=== PATIENT | male | born 1940 | race Caucasian/White ===

== ENCOUNTER 2016-09-03 07:42 | Emergency (ER) | payer MEDICARE, BC ==
[~2016-09-03] VITALS: Ht 188 cm; Wt 100.3 kg
[~2016-09-03 07:42] MED LIST: COUM5TAB PO; COZA50TA PO; FEXO180 PO; HYDR-3111 PO; OMPR20CCR PO; TAMS5CAP PO; TOPR25TA2 PO
[2016-09-03 07:48] VITALS: BP 139/77; PULSE 94; RESP 18; TEMP 97.7; O2SAT 98
--- NOTE | 2016-09-03 08:03 | PD ---
HPI Chief Complaint: Complaint Time Seen by Provider: 07:54 Travel History International Travel<30 days: No Contact w/Intl Traveler<30days: No Traveled to known affect area: No History of Present Illness HPI This patient is worried about having a bladder infection. He has some dysuria and noticed his urine looked cloudy. No fever or flank pain. Symptoms severity is mild.. PFSH Past Medical History Hx Anticoagulant Therapy: Yes (warfarin) Arthritis: Yes (OSTEOARTHRITIS ) Atrial Fibrillation: Yes Cancer: No Cardiovascular Problems: Yes (afib) High Cholesterol: No Diabetes: Yes (DIET CONTROLLED) Diminished Hearing: No Gastrointestinal Disorders: No GERD: Yes Genitourinary: Yes Hypertension: Yes Immune Disorder: No Implanted Vascular Access Dvce: No Musculoskeletal: Yes Immunizations Current: Yes Past Surgical History Oral Surgery: Yes (TONSILLECTOMY) Tonsillectomy: Yes Other Surgery: Yes Social History Alcohol Use: No Tobacco Use: No Substance Use: No Allergies-Medications (Allergen,Severity, Reaction): Coded Allergies: No Known Allergies (Verified , 09/03/16) Reported Meds & Prescriptions Reported Meds & Active Scripts Active Cipro (Ciprofloxacin HCl) 500 Mg Tab 500 Mg PO BID Reported Prilosec (Omeprazole) 20 Mg Cap 20 Mg PO EVERY OTHER DAY Flomax (Tamsulosin HCl) 0.4 Mg Cap 0.4 Mg PO HS Toprol XL (Metoprolol Succinate) 25 Mg Tab 25 Mg PO DAILY Cozaar (Losartan Potassium) 50 Mg Tab 50 Mg PO DAILY Coumadin (Warfarin) 5 Mg Tab 5 Mg PO MOTUWETHSASU Coumadin (Warfarin) 2.5 Mg Tab 2.5 Mg PO FRI Review of Systems General / Constitutional: No: Fever HENT: No: Headaches Cardiovascular: No: Chest Pain or Discomfort Physical Exam Narrative GASTROINTESTINAL: Abdomen soft, non-tender, nondistended. Positive bowel sounds. No hepato-splenomegaly, or palpable masses. No guarding. SKIN: Inspection shows no rash or ulcers. Palpation shows no induration or nodules. Psych: Normal mood and affect. Normal insight and judgment. Data Data Last Documented VS Vital Signs Date Time Temp Pulse Resp B/P Pulse Ox O2 Delivery O2 Flow Rate FiO2 09/03/16 07:48 97.7 94 18 139/77 98 Room Air Orders Urinalysis - C+S If Indicated (09/03/16 08:01) Urine Culture (09/03/16 08:02) Labs Laboratory Tests Test 09/03/16 08:02 Urine Collection Type CLEAN CATCH Urine Color STRAW Urine Turbidity CLOUDY Urine pH 6.5 Urine Specific Perry 1.009 Urine Protein TRACE mg/dL Urine Glucose (UA) NEG mg/dL Urine Ketones NEG mg/dL Urine Occult Blood MOD Urine Nitrite NEG Urine Bilirubin NEG Urine Leukocyte Esterase LARGE Urine RBC 0-3 /hpf Urine WBC 50-99 /hpf Urine WBC Clumps MOD Microscopic Urinalysis Comment CULTURE INDICATED MDM Medical Decision Making Medical Screen Exam Complete: Yes Emergency Medical Condition: Yes Medical Record Reviewed: Yes Differential Diagnosis Cystitis, UTI, pyelonephritis Narrative Course I have reviewed the patient's electronic medical record. Urinalysis is consistent with infection with bacteriuria and pyuria 5 days of Cipro prescribed Diagnosis Primary Impression: Cystitis Additional Instructions: The patient was advised to follow up with their physician and return if they worsen. Med/Other Pt SpecificInfo: Prescription(s) given Scripts Ciprofloxacin (Cipro)500 Mg Phg791 Mg PO BID #10 TAB Ref 0 Prov:Jose Levi MD 09/03/16 Disposition: DISCHARGE HOME Condition: Stable Jose Levi MD Sep 03, 2016 08:03
[2016-09-03] MEDS ORDERED: TOPR25TA PO (08:04)
[2016-09-03] MEDS ORDERED: PRIL20CA9 PO (08:04)
[2016-09-03] MEDS ORDERED: COUM2.5T PO (08:04)
[2016-09-03] MEDS ORDERED: COUM5TAB PO (08:04)
[2016-09-03] MEDS ORDERED: COZA50TA PO (08:04)
[2016-09-03] MEDS ORDERED: TAMS5CAP PO (08:04)
[2016-09-03 08:19] LABS: BLOOD, URINE MOD (NEG); GLUCOSE,URINE NEG (NEG); KETONE, URINE NEG (NEG); METHOD OF COLLECTION CLEAN CATCH; NITRITE,URINE NEG (NEG); PH, URINE 6.5 (5.0-8.5); URINE COLOR STRAW (YELLW/STRAW)
[2016-09-03 08:25] LABS: COMMENT (UR) CULTURE INDICATED; CULTURE IF INDICATED CULTURE INDICATED; RBC, URINE 0-3 /hpf (0-3)
[2016-09-03] MEDS ORDERED: CIPR-9 PO (08:32)
== END 2016-09-03 08:50 | disposition home or self-care (01) ==
LOC: PHED 07:42
DX: N30.90 Cystitis, unspecified without hematuria (principal)
CPT/HCPCS: 81001; 87086; 99283

== ENCOUNTER 2017-11-15 08:47 | Observation (INO) | payer MEDICARE, BC ==
[2017-11-15] VITALS (8 sets, daily range): BP systolic 124–143; BP diastolic 60–99; PULSE 55–100; RESP 16–20; TEMP 97.5–98.2; O2SAT 18–100
[~2017-11-15] VITALS: Ht 182.9 cm; Wt 100.0 kg
[~2017-11-15 08:47] MED LIST changes: +CIPR-9 PO; +COUM2.5T PO; -FEXO180 PO; -HYDR-3111 PO; -OMPR20CCR PO; +PRIL20CA9 PO; +TOPR25TA PO; -TOPR25TA2 PO
[2017-11-15] MEDS ORDERED: OMEP20TA93 PO (09:06)
[2017-11-15] MEDS ORDERED: SODIUM CHLORIDE 0.9% FLUSH 10 ML FLUSH IVF PRN (09:15)
--- NOTE | 2017-11-15 09:24 | PD ---
HPI Chief Complaint: Cardiac Complaint Time Seen by Provider: 08:55 Travel History International Travel<30 days: No Contact w/Intl Traveler<30days: No Traveled to known affect area: No History of Present Illness HPI This patient woke up at 430 this morning and felt lightheaded and dizzy. He felt like he was going to pass out. He did not lose consciousness. He did not have any chest pain or pressure or tightness or heaviness. Not short of breath or having any headache. Does have history of A. fib on Coumadin. He called paramedics for evaluation. Symptom severity is moderate. Duration 5 hours. No alleviating factors. No exacerbating factors. PFSH Past Medical History Hx Anticoagulant Therapy: Yes Arthritis: Yes (OSTEOARTHRITIS ) Atrial Fibrillation: Yes Heart Rhythm Problems: Yes (AFIB) Cancer: No Cardiovascular Problems: Yes High Cholesterol: No Diabetes: Yes (DIET CONTROLLED) Patient Takes Glucophage: No Diminished Hearing: No Gastrointestinal Disorders: No GERD: Yes Genitourinary: Yes Hypertension: Yes Immune Disorder: No Implanted Vascular Access Dvce: No Musculoskeletal: Yes Immunizations Current: Yes Influenza Vaccination: Yes Past Surgical History Oral Surgery: Yes (TONSILLECTOMY) Tonsillectomy: Yes Other Surgery: Yes Social History Alcohol Use: No Tobacco Use: No Substance Use: No Allergies-Medications (Allergen,Severity, Reaction): Coded Allergies: No Known Allergies (Verified Adverse Reaction, Unknown, 11/15/17) Reported Meds & Prescriptions Reported Meds & Active Scripts Active Reported Omeprazole 20 Mg Tab 20 Mg PO DAILY Flomax (Tamsulosin HCl) 0.4 Mg Cap 0.4 Mg PO HS Toprol XL (Metoprolol Succinate) 25 Mg Tab 25 Mg PO DAILY Cozaar (Losartan Potassium) 50 Mg Tab 50 Mg PO DAILY Coumadin (Warfarin) 5 Mg Tab 5 Mg PO MOTUWETHSASU Coumadin (Warfarin) 2.5 Mg Tab 2.5 Mg PO FRI Review of Systems General / Constitutional: No: Fever Eyes: No: Visual changes HENT: Positive: Lightheadedness, No: Headaches Cardiovascular: No: Chest Pain or Discomfort Respiratory: No: Shortness of Breath Gastrointestinal: No: Abdominal Pain Genitourinary: No: Dysuria Musculoskeletal: Positive: Weakness, No: Pain Skin: No Rash Neurologic: Positive: Weakness, Dizziness Psychiatric: No: Depression Endocrine: No: Polydipsia Hematologic/Lymphatic: No: Easy Bruising Physical Exam Narrative GENERAL: Well-nourished, well-developed patient in no apparent distress. SKIN: Focused skin assessment reveals no rash and nodules. Skin is Warm and dry. HEAD: Atraumatic. Normocephalic. EYES: Pupils equal and round. No scleral icterus. No injection or drainage. ENT: No nasal bleeding or discharge. Mucous membranes pink and moist. NECK: Trachea midline. No JVD. CARDIOVASCULAR: Regular rate and rhythm. No murmur appreciated. RESPIRATORY: No accessory muscle use. Clear to auscultation. Breath sounds equal bilaterally. GASTROINTESTINAL: Abdomen soft, non-tender, nondistended. Hepatic and splenic margins not palpable. MUSCULOSKELETAL: No obvious deformities. No clubbing. No cyanosis. Trace symmetric ankle edema NEUROLOGICAL: Awake and alert. No obvious cranial nerve deficits. Motor grossly within normal limits. Normal speech. PSYCHIATRIC: Appropriate mood and affect; insight and judgment normal. Data Data Last Documented VS Vital Signs Date Time Temp Pulse Resp B/P (MAP) Pulse Ox O2 Delivery O2 Flow Rate FiO2 11/15/17 15:29 83 16 143/72 (95) 98 Room Air 11/15/17 09:01 97.5 Orders Orders Electrocardiogram (11/15/17 09:10) Basic Metabolic Panel (Bmp) (11/15/17 09:10) Ckmb (Isoenzyme) Profile (11/15/17 09:10) Complete Blood Count With Diff (11/15/17 09:10) Prothrombin Time / Inr (Pt) (11/15/17 09:10) Troponin I (11/15/17 09:10) Ecg Monitoring (11/15/17 09:10) Iv Access Insert/Monitor (11/15/17 09:10) Oximetry (11/15/17 09:10) Sodium Chloride 0.9% Flush (Ns Flush) (11/15/17 09:15) Orthostatic Vital Signs (11/15/17 09:10) CKMB (11/15/17 09:21) CKMB% (11/15/17 09:21) Ct Brain W/O Iv Contrast(Rout) (11/15/17 ) Diet Heart Healthy (11/15/17 Dinner) Labs Laboratory Tests Test 11/15/17 09:21 White Blood Count 8.4 TH/MM3 Red Blood Count 4.29 MIL/MM3 Hemoglobin 15.0 GM/DL Hematocrit 43.2 % Mean Corpuscular Volume 100.7 FL Mean Corpuscular Hemoglobin 34.9 PG Mean Corpuscular Hemoglobin Concent 34.6 % Red Cell Distribution Width 13.2 % Platelet Count 151 TH/MM3 Mean Platelet Volume 8.9 FL Neutrophils (%) (Auto) 76.2 % Lymphocytes (%) (Auto) 17.0 % Monocytes (%) (Auto) 3.4 % Eosinophils (%) (Auto) 3.1 % Basophils (%) (Auto) 0.3 % Neutrophils # (Auto) 6.4 TH/MM3 Lymphocytes # (Auto) 1.4 TH/MM3 Monocytes # (Auto) 0.3 TH/MM3 Eosinophils # (Auto) 0.3 TH/MM3 Basophils # (Auto) 0.0 TH/MM3 CBC Comment DIFF FINAL Differential Comment Prothrombin Time 28.8 SEC Prothromb Time International Ratio 2.9 RATIO Blood Urea Nitrogen 11 MG/DL Creatinine 0.88 MG/DL Random Glucose 155 MG/DL Calcium Level 8.2 MG/DL Sodium Level 133 MEQ/L Potassium Level 4.2 MEQ/L Chloride Level 98 MEQ/L Carbon Dioxide Level 27.1 MEQ/L Anion Gap 8 MEQ/L Estimat Glomerular Filtration Rate 84 ML/MIN Total Creatine Kinase 119 U/L Creatine Kinase MB 2.6 NG/ML Troponin I LESS THAN 0.02 NG/ML MDM Medical Decision Making Medical Screen Exam Complete: Yes Emergency Medical Condition: Yes Medical Record Reviewed: Yes Differential Diagnosis Vasovagal episode, cardiac arrhythmia, orthostatic hypotension Narrative Course I have reviewed the patient's electronic medical record. I reviewed his EKG which shows sinus rhythm but no acute ST elevation Extended cardiac monitoring reveals sinus rhythm without ectopy His vital signs are normal Neurologic exam looks normal He has some vague lightheadedness and dizziness and general malaise with some weakness in a general fashion but nothing focal I do not see any evidence for CVA or ACS He has had no chest pain Lab studies have been sent We will check orthostatics Orthostatics are normal The patient rang his call pablo and decided to add further history to the story. Hours after he has been in the room he now tells me that during a 10 minute spell prior to arrival he was slurring and garbling his words. He knew what he wanted to say but could not get the right words out. Did not have muscle weakness nor sensory loss. Speech is now normal. Based on this new information I have added a brain CT. He does have an INR of 2.[address] shows no hemorrhage His new information is concerning for TIA. Given his history of A. fib and age I am going to do 23 hour observation on telemetry I reviewed with the residents will do this I reviewed all his lab studies Diagnosis Primary Impression: TIA (transient ischemic attack) Qualified Codes: G45.9 - Transient cerebral ischemic attack, unspecified Additional Impressions: Atrial fibrillation Qualified Codes: I48.2 - Chronic atrial fibrillation Lightheadedness Admitting Information Admitting Physician Requests: Observation Jose Levi MD Nov 15, 2017 09:24
[2017-11-15 09:31] LABS: AUTOMATED NEUTROPHIL # 6.4 TH/MM3 (1.8-7.7); BASOPHIL % 0.3 % (0.0-2.0); EOSINOPHIL # 0.3 TH/MM3 (0-0.4); EOSINOPHIL % 3.1 % (0.0-4.0); HEMATOCRIT 43.2 % (39.0-51.0); LYMPHOCYTE # 1.4 TH/MM3 (1.0-4.8); MEAN CELL VOLUME 100.7 FL (80.0-100.0); MEAN CORPUSCULAR HEMOGLOBIN 34.9 PG (27.0-34.0); MEAN CORPUSCULAR HGB CONC 34.6 % (32.0-36.0); MEAN PLATELET VOLUME 8.9 FL (7.0-11.0); MONO % 3.4 % (0.0-8.0); MONOCYTE # 0.3 TH/MM3 (0-0.9); NEUT % 76.2 % (16.0-70.0); PLATELET COUNT 151 TH/MM3 (150-450); RED BLOOD COUNT 4.29 MIL/MM3 (4.50-5.90); RED CELL DISTRIBUTION WIDTH 13.2 % (11.6-17.2); WHITE BLOOD COUNT 8.4 TH/MM3 (4.0-11.0)
[2017-11-15 09:41] LABS: INTERNATIONAL NORMALIZED RATIO 2.9 RATIO; PROTHROMBIN TIME - PATIENT 28.8 SEC (9.8-11.6)
[2017-11-15 09:59] LABS: TROPONIN I LESS THAN 0.02 NG/ML (0.02-0.05)
[2017-11-15 10:07] LABS: BICARBONATE 27.1 MEQ/L (21.0-32.0); BLOOD UREA NITROGEN 11 MG/DL (7-18); CALCIUM 8.2 MG/DL (8.5-10.1); CHLORIDE 98 MEQ/L (98-107); CREATININE 0.88 MG/DL (0.60-1.30); GLOMERULAR FILTRATION RATE 84 ML/MIN (>89); GLUCOSE,RANDOM 155 MG/DL (74-106); SODIUM (NA) 133 MEQ/L (136-145)
--- NOTE | 2017-11-15 14:31 | RADRPT ---
EXAM DATE/TIME: 11/15/2017 14:20 [facility] COMPARISON: No previous studies available for comparison. INDICATIONS : Generalized weakness, dizziness. RADIATION DOSE: 44.85 CTDIvol (mGy) MEDICAL HISTORY : Cardiovascular disease. Hypertension. Osteoarthritis.AFIB, diabetes SURGICAL HISTORY : None. ENCOUNTER: Initial ACUITY: 1 day PAIN SCALE: 2/10 LOCATION: cranial TECHNIQUE: Multiple contiguous axial images were obtained of the head. Using automated exposure control and adj ustment of the mA and/or kV according to patient size, radiation dose was kept as low as reasonably a chievable to obtain optimal diagnostic quality images. DICOM format image data is available electro nically for review and comparison. FINDINGS: CEREBRUM: The ventricles are normal for age. No evidence of midline shift, mass lesion, hemorrhage or acute in farction. No extra-axial fluid collections are seen. POSTERIOR FOSSA: The cerebellum and brainstem are intact. The 4th ventricle is midline. The cerebellopontine angle i s unremarkable. EXTRACRANIAL: The visualized portion of the orbits is intact. SKULL: The calvaria is intact. No evidence of skull fracture. CONCLUSION: 1. No acute intracranial abnormality is identified. Gato Orr MD on November 15, 2017 at 14:27 Board Certified Radiologist. This report was verified electronically.
[2017-11-15] MEDS ORDERED: SODIUM CHLORIDE 0.9% FLUSH 10 ML FLUSH IV FLUSH PRN ×2 (17:30→18:15)
--- NOTE | 2017-11-15 17:36 | HHI.HP ---
HPI Service Family Medicine Primary Care Physician Unknown Admission Diagnosis TIA, afib, lightheaded Diagnoses: International Travel<30 Days: No Contact w/Intl Traveler<30days: No Known Affected Area: No History of Present Illness 77 yo M with PMH of Afib, DM, HTN, GERD, BPH presenting for TIA. Patient was in his normal state of health prior to to this morning. This patient woke up at 430 and felt fine, but after eating breakfast and felt lightheaded, dizzy like he may pass out. Took his BP at that time which was 101/60. He did not lose consciousness. He did not have any chest pain or pressure or tightness or heaviness. Not short of breath or having any headache. Does have history of A. fib on Coumadin. He called paramedics for evaluation, and was unable to recall his address, he also states he was unable to express the words he was trying to say. Did not have muscle weakness nor sensory loss. Speech is now normal. In 2011 he had similar symptoms and was unable to swallow at that time he says. At that point he was diagnosed with Afib and started on Coumadin. Review of Systems Constitutional: DENIES: Fever, Weight gain, Weight loss, Chills Eyes: DENIES: Blurred vision, Vision loss Respiratory: DENIES: Cough, Wheezing, Shortness of breath Cardiovascular: DENIES: Chest pain, Palpitations Gastrointestinal: DENIES: Abdominal pain, Bloody stools, Constipation, Diarrhea , Nausea, Vomiting Genitourinary: DENIES: Hematuria, Dysuria Musculoskeletal: COMPLAINS OF: Joint pain (chronic knee pain) Integumentary: DENIES: Rash Hematologic/lymphatic: DENIES: Lymphadenopathy Neurologic: DENIES: Headache, Localized weakness, Seizures Psychiatric: DENIES: Confusion Past Family Social History Past Medical History Afib DM (diet controlled) GERD HTN Osteoarthritis of both knees BPH Past Surgical History Tonsillectomy Allergies: Coded Allergies: No Known Allergies (Verified Allergy, Unknown, 11/15/17) Family History Mother at 53 of breast cancer Brother at 64 of esophageal cancer Brother immunodeficiency? 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 Sitting up on edge of bed comfortably. SKIN: No rashes, ecchymoses or lesions. Cool and dry. HEAD: Atraumatic. Normocephalic. No temporal or scalp tenderness. EYES: Pupils equal round and reactive. Extraocular motions intact. No scleral icterus. No injection or drainage. ENT: Nose without bleeding, purulent drainage or septal hematoma. Throat without erythema, tonsillar hypertrophy or exudate. Uvula midline. Airway patent. NECK: Trachea midline. No JVD or lymphadenopathy. Supple, nontender, no meningeal signs. CARDIOVASCULAR: Regular rate and rhythm without murmurs, gallops, or rubs. RESPIRATORY: Clear to auscultation. Breath sounds equal bilaterally. No wheezes , rales, or rhonchi. GASTROINTESTINAL: Abdomen soft, non-tender, nondistended. No hepato-splenomegaly , or palpable masses. No guarding. MUSCULOSKELETAL: Extremities without clubbing, cyanosis, or edema. No joint tenderness, effusion, or edema noted. No calf tenderness. Negative Homans sign bilaterally. NEUROLOGICAL: Awake and alert. No focal weaknesses or asymmetry appreciated. Cranial nerves II through XII intact. No pronator drift. Finger to nose intact. Heal to kennedy intact. Motor and sensory intact and equal bilaterally. Five out of 5 muscle strength in all muscle groups. Normal speech. Laboratory Laboratory Tests Test 11/15/17 09:21 White Blood Count 8.4 Red Blood Count 4.29 Hemoglobin 15.0 Hematocrit 43.2 Mean Corpuscular Volume 100.7 Mean Corpuscular Hemoglobin 34.9 Mean Corpuscular Hemoglobin Concent 34.6 Red Cell Distribution Width 13.2 Platelet Count 151 Mean Platelet Volume 8.9 Neutrophils (%) (Auto) 76.2 Lymphocytes (%) (Auto) 17.0 Monocytes (%) (Auto) 3.4 Eosinophils (%) (Auto) 3.1 Basophils (%) (Auto) 0.3 Neutrophils # (Auto) 6.4 Lymphocytes # (Auto) 1.4 Monocytes # (Auto) 0.3 Eosinophils # (Auto) 0.3 Basophils # (Auto) 0.0 CBC Comment DIFF FINAL Differential Comment Prothrombin Time 28.8 Prothromb Time International Ratio 2.9 Blood Urea Nitrogen 11 Creatinine 0.88 Random Glucose 155 Calcium Level 8.2 Sodium Level 133 Potassium Level 4.2 Chloride Level 98 Carbon Dioxide Level 27.1 Anion Gap 8 Estimat Glomerular Filtration Rate 84 Total Creatine Kinase 119 Creatine Kinase MB 2.6 Troponin I LESS THAN 0.02 Result Diagram: 11/15/17 0921 11/15/17 0921 Imaging Last [address] 11/15/17 0000 Signed Impressions: Service Date/Time: Wednesday, November 15, 2017 14:20 - CONCLUSION: 1. No acute intracranial abnormality is identified. MD Jose Estevesi VTE Risk Assessment Capyvonne VTE Risk Assessment: Mod/High Risk (score >= 2) Assessment and Plan Assessment and Plan 77 yo M with PMH of Afib, HTN, DM, GERD, BPH admitted for TIA. ACS workup on admission negative. CT head negative on admission. Admitting for 24 hour observation and TIA workup. Code Status DNR Discussed Condition With Dr. Lauryn Gaytan Problem List: (1) TIA (transient ischemic attack) ICD Codes: G45.9 - Transient cerebral ischemic attack, unspecified Status: Acute Plan: Patient describes lightheadedness, dizziness on the morning of admission followed by a 10 minute spell of dysphagia where he cannot do his words out. Currently asymptomatic with no residual focal deficits ACS workup negative on admission EKG on admission showing sinus rhythm with no acute ST elevations Trending troponins MRI/MRA brain pending Echo pending Carotid ultrasound pending Telemetry Neurochecks Out of bed with assistance ASA 325 mg by mouth Lipid profile pending (2) Atrial fibrillation ICD Codes: I48.91 - Unspecified atrial fibrillation Status: Acute Plan: Patient with a history of A. fib Takes warfarin 5 mg daily except for Fridays when he takes 2.5 mg Currently in sinus rhythm INR 2.9 on admission Placing on telemetry Continuing home medications See TIA workup above (3) HTN (hypertension) ICD Codes: I10 - Essential (primary) hypertension Plan: Known history of hypertension Continue home metoprolol 25 mg daily, Cozaar 50 mg daily (4) Diabetes ICD Codes: E11.9 - Type 2 diabetes mellitus without complications Plan: Patient has managed his diabetes with diet Random glucose 155 on admission Hemoglobin A1c pending Low-dose sliding scale ordered (5) BPH (benign prostatic hyperplasia) ICD Codes: N40.0 - Benign prostatic hyperplasia without lower urinary tract symptoms Plan: Known history of BPH No complaints of urinary symptoms at this time Continue home Flomax (6) GERD (gastroesophageal reflux disease) ICD Codes: K21.9 - Gastro-esophageal reflux disease without esophagitis Plan: Known history of GERD Continue home omeprazole (7) FEN Plan: No IV fluids at this time Heart healthy diet Replete electrolytes as needed Currently anticoagulated with warfarin Problem Qualifiers (1) TIA (transient ischemic attack): Qualified Codes: G45.9 - Transient cerebral ischemic attack, unspecified (2) Atrial fibrillation: Qualified Codes: I48.2 - Chronic atrial fibrillation Jonny Villalba MD R1 Nov 15, 2017 17:35
[2017-11-15] MEDS ORDERED: GLUCAGON 1 MG/ML VIAL OTHER PRN (18:15)
[2017-11-15] MEDS ORDERED: WARFARIN SOD 2.5 MG TAB PO ONE (18:15)
[2017-11-15] MEDS ORDERED: ENALAPRILAT 1.25 MG/ML VIAL IV PUSH PRN (18:15)
[2017-11-15] MEDS ORDERED: DEXTROSE 50% IN WATER 50 ML VIAL(D50) IV PUSH PRN (18:15)
[2017-11-15] MEDS: ASPIRIN 325 MG TAB PO SCH (18:15)
[2017-11-15] MEDS ORDERED: BISACODYL 10 MG SUPP RECTAL PRN (18:30)
[2017-11-15] MEDS ORDERED: LACTULOSE SYRUP 20 GM/30 ML CUP PO PRN (18:30)
[2017-11-15] MEDS ORDERED: MAGNESIUM HYDROXIDE SUSP 30 ML CUP PO PRN (18:30)
[2017-11-15] MEDS ORDERED: SENNOSIDES 8.6 MG TAB PO PRN (18:30)
[2017-11-15] MEDS ORDERED: ACETAMINOPHEN 325 MG TAB PO PRN (18:30)
[2017-11-15] MEDS ORDERED: [UNRECOGNIZED DRUG - CODE] (19:26)
[2017-11-15] MEDS ORDERED: EYEL15SP (19:26)
[2017-11-15] MEDS ORDERED: TAMSULOSIN HCL 0.4 MG CAP PO SCH (21:00)
[2017-11-15] MEDS: DOCUSATE SODIUM 50 MG/SENNA 8.6 MG TAB PO SCH (21:00)
[2017-11-15] MEDS: INSULIN ASPART SUPPLEMENTAL SCALE SQ SCH (21:00)
[2017-11-15] MEDS ORDERED: SODIUM CHLORIDE 0.9% FLUSH 10 ML FLUSH IV FLUSH SCH ×2 (21:00)
[2017-11-15 22:13] LABS: HEMOGLOBIN A1C 5.9 % (4.3-6.0)
--- NOTE | 2017-11-15 23:24 | RADRPT ---
EXAM DATE/TIME: 11/15/2017 20:56 [facility] COMPARISON: No previous studies available for comparison. INDICATIONS : Cerebrovascular accident. MEDICAL HISTORY : Hypertension. Gastroesophageal reflux disease. Benign prostatic hyperplasia, (BPH) Glasses. Atrial fi brillation. Arthritis. Diabetes. Shingles. SURGICAL HISTORY : Tonsillectomy. ENCOUNTER: Initial ACUITY: 1 day PAIN SCORE: 0/10 LOCATION: Bilateral neck PEAK SYSTOLIC VELOCITIES (cm/sec): ICA/CCA RATIO: Right: 0.9 Left: 1.0 ICA: Right: 69.1 Left: 77.6 CCA: Right: 80.2 Left: 78.9 ECA: Right: 73.7 Left: 73.7 VERTEBRAL: Right: 46.0 antegrade Left: 49.3 antegrade Elevated flow velocities and ICA/CCA ratios have been found to correlate with increased degrees of vessel stenosis, calculated as percentage of diameter relative to a normal segment of distal ICA/CCA FINDINGS: RIGHT CAROTID: No significant stenosis is visualized. The waveforms are within normal limits. LEFT CAROTID: No significant stenosis is visualized. The waveforms are within normal limits. VERTEBRAL ARTERIES: Antegrade flow is seen in both vertebral arteries. MISCELLANEOUS: None. CONCLUSION: Within normal limits. No significant plaque or narrowing. Kane Amador MD on November 15, 2017 at 23:22 Board Certified Radiologist. This report was verified electronically.
--- NOTE | 2017-11-15 23:37 | RADRPT ---
EXAM DATE/TIME: 11/15/2017 21:28 [facility] COMPARISON: MRI BRAIN W/O CONTRAST, November 15, 2017, 21:28. US CAROTID ARTERIES, November 15, 2017, 20:56. CT BRAIN W/O CONTRAST, November 15, 2017, 14:20. INDICATIONS : Expressive aphasia. MEDICAL HISTORY : None. SURGICAL HISTORY : Tonsillectomy. ENCOUNTER: Initial ACUITY: 1 day PAIN SCORE: 0/10 LOCATION: cranial Please note a normal MRA of the brain does not entirely exclude the possibility of a small aneurysm, nor the possibility of distal intracranial vessel disease. TECHNIQUE: 3D time of flight MRA was performed. Source images, multiplanar STS MIP, and 3D volume MIP reconstru ctions were reviewed. FINDINGS: There is excellent visualization of the major intracranial arteries out to the second-order branch ve ssels. There is no evidence for aneurysm, vessel truncation or stenosis, and no evidence for vascula r malformation. CONCLUSION: Intracranial arteries are within normal limits. Kane Amador MD on November 15, 2017 at 23:34 Board Certified Radiologist. This report was verified electronically.
--- NOTE | 2017-11-15 23:39 | RADRPT ---
EXAM DATE/TIME: 11/15/2017 21:28 [facility] COMPARISON: MRA BRAIN W/O CONTRAST, November 15, 2017, 21:28. US CAROTID ARTERIES, November 15, 2017, 20:56. CT BRAIN W/O CONTRAST, November 15, 2017, 14:20. INDICATIONS : Expressive aphasia. MEDICAL HISTORY : None. SURGICAL HISTORY : Tonsillectomy. ENCOUNTER: Initial ACUITY: 1 day PAIN SCORE: 0/10 LOCATION: cranial TECHNIQUE: Multiplanar, multisequence MRI of the brain was performed without contrast. FINDINGS: CEREBRUM: The ventricles are normal for age. No evidence of midline shift, mass lesion, hemorrhage or acute in farction. No extraaxial fluid collections are seen. Incidentally seen empty sella.. Atrophy present, fairly generalized but slightly frontal lobe predominant. WHITE MATTER: No significant signal abnormalities are seen in the white matter. POSTERIOR FOSSA: The cerebellum and brainstem are intact. The 4th ventricle is midline. The cerebellopontine angle is unremarkable. The cerebellar tonsils are normal in position. DIFFUSION IMAGING: No focal areas of restricted diffusion are seen. No evidence of acute infarction. EXTRACRANIAL: The visualized portions of the orbits and paranasal sinuses are unremarkable. CONCLUSION: No acute infarct or other acute intracranial abnormality. Atrophy. Kane Amador MD on November 15, 2017 at 23:35 Board Certified Radiologist. This report was verified electronically.
[2017-11-16] MEDS ORDERED: [UNRECOGNIZED DRUG - CODE] EACH EYE (01:03)
[2017-11-16 08:00] VITALS: BP 132/68; PULSE 85; RESP 18; TEMP 97.6; O2SAT 97
[2017-11-16] MEDS: INSULIN ASPART SUPPLEMENTAL SCALE SQ SCH ×2 (08:00→11:55)
--- NOTE | 2017-11-16 08:05 | HHI.DCPOC ---
Discharge Care Plan Diagnosis: (1) TIA (transient ischemic attack) (2) Atrial fibrillation (3) HTN (hypertension) (4) BPH (benign prostatic hyperplasia) Goals to Promote Your Health * To prevent worsening of your condition and complications * To maintain your health at the optimal level Directions to Meet Your Goals Take your medications as prescribed Follow your dietary instruction Follow activity as directed Keep your appointments as scheduled Take your immunizations and boosters as scheduled If your symptoms worsen call your PCP, if no PCP go to Urgent Care Center or Emergency Room Smoking is Dangerous to Your Health. Avoid second hand smoke Call the 24-hour hour crisis hotline for domestic abuse at Maira Boggs MD, R3 Nov 16, 2017 08:05
[2017-11-16] MEDS: ASPIRIN 325 MG TAB PO SCH ×2 (08:28→09:00)
[2017-11-16] MEDS: DOCUSATE SODIUM 50 MG/SENNA 8.6 MG TAB PO SCH (08:32)
[2017-11-16] MEDS ORDERED: PANTOPRAZOLE SOD 20 MG DELAYED RELEASE TAB PO SCH (09:00)
[2017-11-16] MEDS ORDERED: METOPROLOL SUCCINATE 25 MG EXTENDED RELEASE TAB PO SCH (09:00)
[2017-11-16] MEDS ORDERED: LOSARTAN 50 MG TAB PO SCH (09:00)
[2017-11-16] MEDS ORDERED: ATOR20TA15 PO ×3 (09:11→09:19)
--- NOTE | 2017-11-16 09:28 | HHI.FPPN ---
Subjective Remarks No acute events overnight. VS unremarkable. This morning patient reports that he is doing well and has no complaints. Would like to go home today if possible. Reports that he will follow up with his halftone operator and PCP after discharge. (Maira Boggs MD, R3) Objective Vitals Vital Signs Date Time Temp Pulse Resp B/P (MAP) Pulse Ox O2 Delivery O2 Flow Rate FiO2 11/16/17 08:00 97.6 85 18 132/68 (89) 97 11/15/17 23:16 98.0 92 18 127/60 (82) 96 11/15/17 19:30 98 Nasal Cannula 2.00 11/15/17 18:59 98.2 100 18 125/65 (85) 18 11/15/17 15:29 83 16 143/72 (95) 98 Room Air 11/15/17 13:21 76 20 135/66 (89) 100 Room Air 11/15/17 09:45 77 18 124/64 (84) 78 18 126/60 (82) 86 18 138/71 (93) 11/15/17 09:45 77 18 95 Room Air (Maira Boggs MD, R3) Result Diagram: 11/15/17 0921 11/15/17 0921 Objective Remarks GENERAL: This is a well-nourished, well-developed patient, in no apparent distress. EYES: Extraocular motions intact. No scleral icterus. No injection or drainage. CARDIOVASCULAR: Regular rate and rhythm without murmurs, gallops, or rubs. RESPIRATORY: Clear to auscultation. Breath sounds equal bilaterally. No wheezes , rales, or rhonchi. GASTROINTESTINAL: Abdomen non distended MUSCULOSKELETAL: Extremities without clubbing, cyanosis, or edema. No joint tenderness, effusion, or edema noted. No calf tenderness. NEUROLOGICAL: Awake and alert. No obvious focal deficits. Speech clear with no evidence of aphasia. Motor and sensory grossly intact. (Maira Boggs MD, R3) A/P Assessment and Plan 77 yo M with PMH of Afib, HTN, DM, GERD, BPH admitted for TIA. Discharge Planning today pending completion of echo as patient is reliable and has good follow up. (Crm Developer Dr. Dennis? and Dr. Richie Vuong is his PCP) sdw Dr. Villalba, Dr. Hitchcock and Dr. aGytan ([facility] Attending Attestation This is a 77 your male who lives at home alone,and experienced some lightheadedness and difficulty with speech which lasted about 10 minutes. He called 911, and his speech cleared by the time he was the emergency department.He had a previous problem with atrial fibrillation in 2010 and has been on warfarin since. At that time he had difficulty swallowing. Today is speech and mentation are clear. He would like to go home if possible.His exam is normal, and we will anticipate discharge today after echocardiogram was performed. Copies of these results will be forwarded to his halftone operator and his primary care doctor. He will resume his home medications, and we added atorvastatin 40 mg daily at bedtime.This is for plaque stabilization. (Antonia Hitchcock MD) Problem List: (1) TIA (transient ischemic attack) ICD Codes: G45.9 - Transient cerebral ischemic attack, unspecified Status: Acute Plan: Presented due to lightheadedness and dizziness that has resolved. Also associated with dysphagia that has resolved. Currently asymptomatic with no focal deficits. Imaging including Head CT, carotid US, MRI head, MRA neck unremarkable. -ACS eval negative. --echo pending, counseled patient that we will not have results but needs to sign medical release of records so that information can be sent to his halftone operator. -patient declines aspirin due to his current use of warfarin -Lipid panel reassuring but due to history of TIA, would benefit from statin for plaque stabilization. (2) Atrial fibrillation ICD Codes: I48.91 - Unspecified atrial fibrillation Status: Chronic Plan: Patient with a history of A. fib but is rate controlled. Takes warfarin 5 mg daily except for Fridays when he takes 2.5 mg. INR in good range -continue home medications -cardiac telemetry (3) HTN (hypertension) ICD Codes: I10 - Essential (primary) hypertension Plan: Known history of hypertension Continue home metoprolol 25 mg daily, Cozaar 50 mg daily (4) Diabetes ICD Codes: E11.9 - Type 2 diabetes mellitus without complications Plan: Patient reports a history of diet controlled DM but his A1c is 5.9. Pt now in prediabetic stage. -Low-dose sliding scale ordered (5) BPH (benign prostatic hyperplasia) ICD Codes: N40.0 - Benign prostatic hyperplasia without lower urinary tract symptoms Plan: Known history of BPH No complaints of urinary symptoms at this time Continue home Flomax (6) GERD (gastroesophageal reflux disease) ICD Codes: K21.9 - Gastro-esophageal reflux disease without esophagitis Plan: Known history of GERD Continue home omeprazole (7) FEN Plan: No IV fluids at this time Heart healthy diet Replete electrolytes as needed Currently anticoagulated with warfarin (Maira Boggs MD, R3) Problem Qualifiers (1) TIA (transient ischemic attack): Qualified Codes: G45.9 - Transient cerebral ischemic attack, unspecified (2) Atrial fibrillation: Qualified Codes: I48.2 - Chronic atrial fibrillation Maira Boggs MD, R3 Nov 16, 2017 09:28 Antonia Hitchcock MD Nov 16, 2017 14:32
[2017-11-16 10:45] LABS: AUTOMATED NEUTROPHIL # 4.7 TH/MM3 (1.8-7.7); BASOPHIL # 0.1 TH/MM3 (0-0.2); BASOPHIL % 0.8 % (0.0-2.0); EOSINOPHIL # 0.2 TH/MM3 (0-0.4); EOSINOPHIL % 2.3 % (0.0-4.0); HEMATOCRIT 43.3 % (39.0-51.0); HEMOGLOBIN 14.8 GM/DL (13.0-17.0); LYMPHOCYTE # 1.3 TH/MM3 (1.0-4.8); MEAN CELL VOLUME 100.3 FL (80.0-100.0); MEAN CORPUSCULAR HEMOGLOBIN 34.3 PG (27.0-34.0); MEAN CORPUSCULAR HGB CONC 34.2 % (32.0-36.0); MEAN PLATELET VOLUME 8.6 FL (7.0-11.0); MONO % 7.4 % (0.0-8.0); MONOCYTE # 0.5 TH/MM3 (0-0.9); NEUT % 69.5 % (16.0-70.0); PLATELET COUNT 154 TH/MM3 (150-450); RED BLOOD COUNT 4.31 MIL/MM3 (4.50-5.90); RED CELL DISTRIBUTION WIDTH 13.3 % (11.6-17.2); WHITE BLOOD COUNT 6.7 TH/MM3 (4.0-11.0)
[2017-11-16 11:21] LABS: ALBUMIN 3.5 GM/DL (3.4-5.0); ALT (GPT) 21 U/L (12-78); AST (GOT) 19 U/L (15-37); BLOOD UREA NITROGEN 9 MG/DL (7-18); CALCIUM 8.5 MG/DL (8.5-10.1); CHLORIDE 99 MEQ/L (98-107); CHOLESTEROL 109 MG/DL (120-200); CREATININE 0.87 MG/DL (0.60-1.30); GLOMERULAR FILTRATION RATE 85 ML/MIN (>89); GLUCOSE,RANDOM 129 MG/DL (74-106); SODIUM (NA) 136 MEQ/L (136-145); TRIGLYCERIDES 73 MG/DL (42-150)
[2017-11-16 11:25] LABS: ALKALINE PHOSPHATASE 58 U/L (45-117); CHOLESTEROL/ HDL RATIO 2.97 RATIO; HDL CHOLESTEROL 36.6 MG/DL (40.0-60.0); LDL CHOLESTEROL 58 MG/DL (0-99); TOTAL BILIRUBIN ADULT 0.7 MG/DL (0.2-1.0); TROPONIN I LESS THAN 0.02 NG/ML (0.02-0.05)
[2017-11-16 12:00] VITALS: BP 136/69; PULSE 82; RESP 18; TEMP 97.6; O2SAT 97
--- NOTE | 2017-11-16 12:06 | EKG ---
Date Performed: 11/15/2017 Time Performed: 08:53:09 PTAGE: 77 years EKG: Sinus rhythm WITH FIRST DEGREE AV BLOCK MARKED LEFT AXIS DEVIATION INTRAVENTRICULAR CONDUCTION DELAY PREVIOUS TRACING : 09/04/2012 10.54 Since previous tracing, no significant change noted DOCTOR: Thien Kitchen Interpretating Date/Time 11/16/2017 12:05:36
[2017-11-16 16:00] VITALS: PULSE 88
[2017-11-16] MEDS ORDERED: WARFARIN SOD 5 MG TAB PO SCH (16:00)
--- NOTE | 2017-11-16 18:41 | ECHRPT ---
Indication: CONCLUSIONS Normal left ventricular size. Wall thickness is normal. The left ventricular systolic function is normal with an estimated ejection fraction in the range of 55-60%. No definite regional wall motion abnormalities. The mitral valve is not well visualized. Trace mitral valve regurgitation. Mild aortic valve sclerosis is present. Mild aortic valve regurgitation. There is trace tricuspid valve regurgitation. BP: 127 / 60 HR: 92 Rhythm: Atrial fibrillation, Atrial flut ter MEASUREMENTS (Male / Female) Normal Values Technical Quality:Technically difficult study 2D ECHO LV Diastolic Diameter PLAX 3.8 cm 4.2 - 5.9 / 3.9 - 5.3 cm LV Systolic Diameter PLAX 2.7 cm IVS Diastolic Thickness 1.6 cm 0.6 - 1.0 / 0.6 - 0.9 cm LVPW Diastolic Thickness 1.6 cm 0.6 - 1.0 / 0.6 - 0.9 cm LV Relative Wall Thickness 0.9 RV Internal Dim ED PLAX 2.6 cm LVOT Diameter 2.4 cm Aortic Root Diameter 3.9 cm M-MODE AV Cusp Separation MM 2.1 cm DOPPLER AV Peak Velocity 148.0 cm/s AV Peak Gradient 8.8 mmHg AV Mean Gradient 5.0 mmHg AV Velocity Time Integral 29.4 cm LVOT Peak Velocity 105.0 cm/s LVOT Peak Gradient 4.4 mmHg LVOT Velocity Time Integral 20.6 cm AV Area Cont Eq vti 3.2 cm AV Area Cont Eq pk 3.2 cm Mitral E Point Velocity 68.6 cm/s Mitral A Point Velocity 47.4 cm/s Mitral E to A Ratio 1.4 LV E' Lateral Velocity 6.9 cm/s Mitral E to LV E' Lateral Ratio 9.9 LV E' Septal Velocity 7.9 cm/s Mitral E to LV E' Septal Ratio 8.7 TR Peak Velocity 265.0 cm/s TR Peak Gradient 28.1 mmHg Right Atrial Pressure 10.0 mmHg Pulmonary Artery Systolic Pressu 38.1 mmHg Right Ventricular Systolic Press 38.1 mmHg PV Peak Velocity 47.4 cm/s PV Peak Gradient 0.9 mmHg FINDINGS LEFT VENTRICLE Normal left ventricular size. Wall thickness is normal. The left ventricular systolic function is normal with an estimated ejection fraction in the range of 55-60%. No definite regional wall motion abnormalities. RIGHT VENTRICLE Normal right ventricular size and systolic function. LEFT ATRIUM The left atrial size is normal. RIGHT ATRIUM The right atrial size is normal. ATRIAL SEPTUM The interatrial septum not well visualized. AORTA The aortic root and proximal ascending aorta are not well visualized. MITRAL VALVE The mitral valve is not well visualized. Trace mitral valve regurgitation. AORTIC VALVE Mild aortic valve sclerosis is present. Mild aortic valve regurgitation. TRICUSPID VALVE There is trace tricuspid valve regurgitation. PULMONARY VALVE The pulmonary valve is not well visualized. VESSELS The inferior vena cava was not well visualized. PERICARDIUM No pericardial effusion. Shoaib Vines MD (Electronically Signed) Final Date:16 November 2017 18:40
== END 2017-11-16 17:41 | disposition home or self-care (01) ==
LOC: NEPC 08:47 → NEDA 17:32
PROVIDERS: ADMIT Family Medicine; ATTEND Family Medicine
DX: G45.9 Transient cerebral ischemic attack, unspecified (principal); I48.2 Chronic atrial fibrillation; I10 Essential (primary) hypertension; I44.0 Atrioventricular block, first degree; E11.9 Type 2 diabetes mellitus without complications; K21.9 Gastro-esophageal reflux disease without esophagitis; N40.0 Benign prostatic hyperplasia without lower urinary tract symptoms; M17.0 Bilateral primary osteoarthritis of knee; Z79.01 Long term (current) use of anticoagulants; Z79.899 Other long term (current) drug therapy
CPT/HCPCS: 70450; 70544; 70551; 80048; 80053; 80061; 82550; 82552; 82948; 83036; 84484; 85025; 85610; 93005; 93306; 93880; 97161; 97166; 99285; G0378; G8987; G8988; G8989

== ENCOUNTER 2017-12-04 17:07 | Emergency (ER) | payer MEDICARE, BC ==
[~2017-12-04] VITALS: Ht 182.9 cm; Wt 100.0 kg
[~2017-12-04 17:07] MED LIST changes: +ATOR20TA15 PO; -CIPR-9 PO; +EYEL15SP; +OMEP20TA93 PO; -PRIL20CA9 PO; +[UNRECOGNIZED DRUG - CODE]; +[UNRECOGNIZED DRUG - CODE] EACH EYE
[2017-12-04 17:19] VITALS: BP 165/74; PULSE 87; RESP 19; TEMP 97.9; O2SAT 97
--- NOTE | 2017-12-04 17:50 | PD ---
HPI Chief Complaint: Pain: Acute or Chronic Time Seen by Provider: 17:35 Travel History International Travel<30 days: No Contact w/Intl Traveler<30days: No Traveled to known affect area: No History of Present Illness HPI 77-year-old male with history of atrial fibrillation on Coumadin presents via EMS for evaluation of a lightheaded episode. He reports that he has chronic right shoulder pain. Today's pain was particularly bad in his right shoulder. He went to a chiropractor. While being questioned by nursing staff he became lightheaded and she was sent here. He reports that the symptoms resolved shortly after paramedics picked him up. His chief complaint is his right shoulder pain and he feels like the lightheadedness was secondary to the pain. He currently only uses Tylenol for his right shoulder pain. He reports that he has had the pain for several years, sharp, worse with movement. He is uncertain what specifically he has been diagnosed with. He denies any dysarthria, ataxia, headache, syncope, blurred vision, nausea, vomiting, chest pain, shortness of breath, dizziness. He notes that he was admitted here on November 15 for evaluation of TIA and lightheadedness. He had a neurologic workup including brain MRI, carotid artery ultrasound, head CT and head MRA which were all normal. He says that today's lightheadedness was different, it was brief and secondary to pain in his right shoulder chronically. No other complaints. PFSH Past Medical History Hx Anticoagulant Therapy: Yes Arthritis: Yes (OSTEOARTHRITIS ) Atrial Fibrillation: Yes Heart Rhythm Problems: Yes (AFIB) Cancer: No Cardiovascular Problems: Yes High Cholesterol: No Diabetes: Yes (DIET CONTROLLED) Patient Takes Glucophage: No Diminished Hearing: No Gastrointestinal Disorders: No GERD: Yes Genitourinary: Yes Hypertension: Yes Immune Disorder: No Implanted Vascular Access Dvce: No Musculoskeletal: Yes Immunizations Current: Yes Tetanus Vaccination: > 5 Years Influenza Vaccination: No Past Surgical History Oral Surgery: Yes (TONSILLECTOMY) Tonsillectomy: Yes Other Surgery: Yes Social History Alcohol Use: No Tobacco Use: No Substance Use: No Allergies-Medications (Allergen,Severity, Reaction): Coded Allergies: No Known Allergies (Verified Allergy, Unknown, 12/04/17) Reported Meds & Prescriptions Reported Meds & Active Scripts Active Atorvastatin (Atorvastatin Calcium) 20 Mg Tab 20 Mg PO HS Reported Opti-Clear Opth Drops (Tetrahydrozoline Opth Drops) 0.05% Soln 1-2 Drop EACH EYE QID Tears Again Eye Ointment (Mineral Oil/Petrolatum,White) 20 %-80 % Oint...g. Tears Again Advanced (Eyelid Emollient Comb No.1) 15 Ml [place] PRN Omeprazole 20 Mg Tab 20 Mg PO DAILY Flomax (Tamsulosin HCl) 0.4 Mg Cap 0.4 Mg PO HS Toprol XL (Metoprolol Succinate) 25 Mg Tab 25 Mg PO DAILY Cozaar (Losartan Potassium) 50 Mg Tab 50 Mg PO DAILY Coumadin (Warfarin) 5 Mg Tab 5 Mg PO MOTUWETHSASU Coumadin (Warfarin) 2.5 Mg Tab 2.5 Mg PO FRI Review of Systems Except as stated in HPI: all other systems reviewed are Neg Physical Exam Narrative GENERAL: Pleasant elderly male in no acute distress. SKIN: Warm and dry. HEAD: Atraumatic. Normocephalic. EYES: Pupils equal and round. No scleral icterus. No injection or drainage. ENT: No nasal bleeding or discharge. Mucous membranes pink and moist. NECK: Trachea midline. No JVD. CARDIOVASCULAR: Regular rate and rhythm. No murmur appreciated. RESPIRATORY: No accessory muscle use. Clear to auscultation. Breath sounds equal bilaterally. GASTROINTESTINAL: Abdomen soft, non-tender, nondistended. Hepatic and splenic margins not palpable. MUSCULOSKELETAL: No obvious deformities. There is tenderness to palpation to the anterior right shoulder joint. There is no bruising or soft tissue swelling. The patient has limited passive and active rotation of the shoulder secondary to pain. NEUROLOGICAL: Awake and alert. No obvious cranial nerve deficits. Motor grossly within normal limits. Normal speech. Data Data Last Documented VS Vital Signs Date Time Temp Pulse Resp B/P (MAP) Pulse Ox O2 Delivery O2 Flow Rate FiO2 12/04/17 19:16 103 18 177/77 (110) 98 Room Air 12/04/17 17:19 97.9 Orders Orders Electrocardiogram (12/04/17 17:46) Basic Metabolic Panel (Bmp) (12/04/17 17:46) Complete Blood Count With Diff (12/04/17 17:46) Magnesium (Mg) (12/04/17 17:46) Prothrombin Time / Inr (Pt) (12/04/17 17:46) Ecg Monitoring (12/04/17 17:46) Ondansetron Inj (Zofran Inj) (12/04/17 18:00) Morphine Inj (Morphine Inj) (12/04/17 18:00) Troponin I (12/04/17 19:16) Creatine Kinase (Cpk) (12/04/17 19:16) Shoulder, Complete (>2vws) (12/04/17 ) Acetamin-Hydrocod 325-5 Mg ([place] 5-325 (12/04/17 20:30) Labs Laboratory Tests Test 12/04/17 17:55 12/04/17 19:00 White Blood Count 10.7 TH/MM3 Red Blood Count 4.16 MIL/MM3 Hemoglobin 14.4 GM/DL Hematocrit 41.8 % Mean Corpuscular Volume 100.5 FL Mean Corpuscular Hemoglobin 34.5 PG Mean Corpuscular Hemoglobin Concent 34.3 % Red Cell Distribution Width 13.2 % Platelet Count 162 TH/MM3 Mean Platelet Volume 8.7 FL Neutrophils (%) (Auto) 86.2 % Lymphocytes (%) (Auto) 7.3 % Monocytes (%) (Auto) 5.3 % Eosinophils (%) (Auto) 0.6 % Basophils (%) (Auto) 0.6 % Neutrophils # (Auto) 9.2 TH/MM3 Lymphocytes # (Auto) 0.8 TH/MM3 Monocytes # (Auto) 0.6 TH/MM3 Eosinophils # (Auto) 0.1 TH/MM3 Basophils # (Auto) 0.1 TH/MM3 CBC Comment DIFF FINAL Differential Comment Prothrombin Time 30.3 SEC Prothromb Time International Ratio 3.0 RATIO Blood Urea Nitrogen 13 MG/DL Creatinine 0.80 MG/DL Random Glucose 109 MG/DL Calcium Level 8.1 MG/DL Magnesium Level 1.7 MG/DL Sodium Level 136 MEQ/L Potassium Level 4.0 MEQ/L Chloride Level 103 MEQ/L Carbon Dioxide Level 27.5 MEQ/L Anion Gap 6 MEQ/L Estimat Glomerular Filtration Rate 94 ML/MIN Total Creatine Kinase 69 U/L Troponin I LESS THAN 0.02 NG/ML MDM Medical Decision Making Medical Screen Exam Complete: Yes Emergency Medical Condition: Yes Medical Record Reviewed: Yes Differential Diagnosis Vasovagal reaction, arrhythmia, electrolyte abnormality, dehydration Narrative Course Physical examination history are reassuring. He reassuringly had a recent full neurologic workup which was negative. He feels that his brief lightheaded event today was secondary to his chronic right shoulder pain. He has limited range of motion in the right shoulder secondary to pain. Plan is to provide him morphine and Zofran. Basic lab work and EKG have been ordered. He will be placed on ECG monitoring. Lab work is reassuring. INR is in the therapeutic range at 3. An x-ray of the right shoulder was obtained revealing chronic degenerative changes with no fracture. The patient feels improved after the administration of analgesic. At this point time the plan is to discharge with follow-up with his primary care physician, likely for physical therapy referral for his chronic right shoulder pain. He is agreeable to this plan. Diagnosis Primary Impression: Lightheadedness Additional Impression: Chronic right shoulder pain Additional Instructions: As discussed, follow-up with your primary care physician in regards to right shoulder pain if symptoms persist outpatient MRI imaging, physical therapy may be warranted. Med/Other Pt SpecificInfo: No Change to Meds Disposition: 01 DISCHARGE HOME Condition: Stable George Eddy Dec 04, 2017 17:50
[2017-12-04] MEDS ORDERED: MORPHINE SULFATE 4 MG/ML INJ IV PUSH ONE (18:00)
[2017-12-04] MEDS ORDERED: ONDANSETRON HCL 4 MG/2 ML VIAL IV PUSH ONE (18:00)
[2017-12-04 18:34] LABS: AUTOMATED NEUTROPHIL # 9.2 TH/MM3 (1.8-7.7); BASOPHIL # 0.1 TH/MM3 (0-0.2); BASOPHIL % 0.6 % (0.0-2.0); EOSINOPHIL # 0.1 TH/MM3 (0-0.4); EOSINOPHIL % 0.6 % (0.0-4.0); HEMATOCRIT 41.8 % (39.0-51.0); HEMOGLOBIN 14.4 GM/DL (13.0-17.0); LYMPH % 7.3 % (9.0-44.0); LYMPHOCYTE # 0.8 TH/MM3 (1.0-4.8); MEAN CELL VOLUME 100.5 FL (80.0-100.0); MEAN CORPUSCULAR HEMOGLOBIN 34.5 PG (27.0-34.0); MEAN CORPUSCULAR HGB CONC 34.3 % (32.0-36.0); MEAN PLATELET VOLUME 8.7 FL (7.0-11.0); MONO % 5.3 % (0.0-8.0); MONOCYTE # 0.6 TH/MM3 (0-0.9); NEUT % 86.2 % (16.0-70.0); PLATELET COUNT 162 TH/MM3 (150-450); RED BLOOD COUNT 4.16 MIL/MM3 (4.50-5.90); RED CELL DISTRIBUTION WIDTH 13.2 % (11.6-17.2); WHITE BLOOD COUNT 10.7 TH/MM3 (4.0-11.0)
[2017-12-04 18:42] LABS: PROTHROMBIN TIME - PATIENT 30.3 SEC (9.8-11.6)
[2017-12-04 19:16] VITALS: BP 177/77; PULSE 103; RESP 18; O2SAT 98
[2017-12-04 20:17] LABS: BICARBONATE 27.5 MEQ/L (21.0-32.0); CALCIUM 8.1 MG/DL (8.5-10.1); CREATININE 0.8 MG/DL (0.60-1.30); MAGNESIUM 1.7 MG/DL (1.5-2.5)
[2017-12-04 20:29] LABS: TROPONIN I LESS THAN 0.02 NG/ML (0.02-0.05)
[2017-12-04] MEDS ORDERED: ACETAMINOPHEN/HYDROcodone 325 MG/5 MG TAB PO ONE (20:30)
--- NOTE | 2017-12-04 21:02 | RADRPT ---
EXAM DATE/TIME: 12/04/2017 20:04 [facility] COMPARISON: No previous studies available for comparison. INDICATIONS : Right shoulder pain after fall. MEDICAL HISTORY : TIA. SURGICAL HISTORY : None. ENCOUNTER: Initial ACUITY: 1 day PAIN SCORE: 10/10 LOCATION: Right shoulder. FINDINGS: Degenerative changes about the shoulder with probable chronic rotator cuff tear. Degenerative change s in the glenohumeral joint. Fracture not appreciated. Lung apex clear. CONCLUSION: Chronic degenerative changes no fracture Jasper Orr MD FACR on December 04, 2017 at 20:59 Board Certified Radiologist. This report was verified electronically.
[2017-12-04] MEDS ORDERED: TYLETAB34 PO (21:33)
--- NOTE | 2017-12-06 10:22 | EKG ---
Date Performed: 12/04/2017 Time Performed: 18:56:06 PTAGE: 77 years EKG: UNCERTAIN REGULAR RHYTHM POSSIBLE RIGHT VENTRICULAR CONDUCTION DELAY LEFT ANTERIOR FASCICUL AR BLOCK SEPTAL MYOCARDIAL INFARCTION ABNORMAL ECG PREVIOUS TRACING : 12/04/2017 18.45 Rhythm is most likely Sinus rhythm with first degree AV block. Since the prior tracing, there has been a slight increase in the heart r ate and the development of right ventricular conduction delay, but otherwise likely no significant se rial change. This tracing is a very poor quality tracing that should be repeated. DOCTOR: Xiomara Estrada Interpretating Date/Time 12/09/2017 07:19:10
== END 2017-12-04 21:48 | disposition home or self-care (01) ==
LOC: NEPC 17:07
DX: R42 Dizziness and giddiness (principal); G89.29 Other chronic pain; M25.511 Pain in right shoulder; I10 Essential (primary) hypertension; I48.91 Unspecified atrial fibrillation; K21.9 Gastro-esophageal reflux disease without esophagitis; Z79.01 Long term (current) use of anticoagulants
CPT/HCPCS: 73030; 80048; 82550; 83735; 84484; 85025; 85610; 93005; 96374; 96375; 99285; J2270; J2405

== ENCOUNTER 2017-12-05 18:50 | Emergency (ER) | payer MEDICARE, BC ==
[~2017-12-05] VITALS: Ht 182.9 cm; Wt 101.0 kg
[~2017-12-05 18:50] MED LIST changes: +TYLETAB34 PO
[2017-12-05 19:03] VITALS: BP 138/63; PULSE 90; RESP 18; TEMP 98.9; O2SAT 97
[2017-12-05] MEDS ORDERED: SODIUM CHLORIDE 0.9% FLUSH 10 ML FLUSH IVF PRN (20:00)
[2017-12-05] MEDS ORDERED: ONDANSETRON HCL 4 MG/2 ML VIAL IV PUSH ONE (20:00)
[2017-12-05] MEDS ORDERED: HYDROmorphone HCL PF 2 MG/ML VIAL IV PUSH ONE (20:00)
[2017-12-05 20:12] VITALS: O2SAT 95
--- NOTE | 2017-12-05 20:50 | PD ---
HPI Chief Complaint: Edema Time Seen by Provider: 19:49 Travel History International Travel<30 days: No Contact w/Intl Traveler<30days: No Traveled to known affect area: No History of Present Illness HPI 77-year-old male arrives with pain in the right shoulder. He states the pain is severe. It's worse with range of motion. It's chronic in nature however much worse over the past 12 hours or so. The patient also describes swelling in the forearm and hand on the right side. He went to a chiropractor earlier in the day which was very helpful for the right shoulder pain. After the chiropractor visit the swelling occurred. The patient reports compliance with Coumadin. He was recently admitted to the hospital for TIA and syncope. PFSH Past Medical History Hx Anticoagulant Therapy: Yes Arthritis: Yes (OSTEOARTHRITIS ) Atrial Fibrillation: Yes Heart Rhythm Problems: Yes (AFIB) Cancer: No Cardiovascular Problems: Yes High Cholesterol: No Cerebrovascular Accident: Yes (TIA) Diabetes: Yes (DIET CONTROLLED) Patient Takes Glucophage: No Diminished Hearing: No Gastrointestinal Disorders: No GERD: Yes Genitourinary: Yes Hypertension: Yes Immune Disorder: No Implanted Vascular Access Dvce: No Musculoskeletal: Yes Immunizations Current: Yes ?: Not Past Surgical History Oral Surgery: Yes (TONSILLECTOMY) Tonsillectomy: Yes Other Surgery: Yes Social History Alcohol Use: No Tobacco Use: No Substance Use: No Allergies-Medications (Allergen,Severity, Reaction): Coded Allergies: atorvastatin (Verified Allergy, Severe, Rash, 12/05/17) Reported Meds & Prescriptions Reported Meds & Active Scripts Active Tylenol-Codeine #3 (Acetaminophen-Codeine) 300-30 mg Tab 1 Tab PO Q6H PRN Reported Opti-Clear Opth Drops (Tetrahydrozoline Opth Drops) 0.05% Soln 1-2 Drop EACH EYE QID Tears Again Eye Ointment (Mineral Oil/Petrolatum,White) 20 %-80 % Oint...g. Tears Again Advanced (Eyelid Emollient Comb No.1) 15 Ml [place] PRN Omeprazole 20 Mg Tab 20 Mg PO DAILY Flomax (Tamsulosin HCl) 0.4 Mg Cap 0.4 Mg PO HS Toprol XL (Metoprolol Succinate) 25 Mg Tab 25 Mg PO DAILY Cozaar (Losartan Potassium) 50 Mg Tab 50 Mg PO DAILY Coumadin (Warfarin) 5 Mg Tab 5 Mg PO MOTUWETHSASU Coumadin (Warfarin) 2.5 Mg Tab 2.5 Mg PO FRI Review of Systems Except as stated in HPI: all other systems reviewed are Neg General / Constitutional: No: Fever HENT: No: Rhinitis Physical Exam Narrative GENERAL: 77 yo M, well-nourished well-developed Vital Signs Date Time Temp Pulse Resp B/P (MAP) Pulse Ox O2 Delivery O2 Flow Rate FiO2 12/05/17 20:12 95 Room Air 12/05/17 20:12 95 Room Air 12/05/17 20:07 88 18 95 Room Air 12/05/17 19:03 98.9 90 18 138/63 (88) 97 SKIN: Warm and dry. HEAD: Atraumatic. Normocephalic. EYES: Pupils equal and round. No scleral icterus. No injection or drainage. ENT: No nasal bleeding or discharge. Mucous membranes pink and moist. NECK: Trachea midline. No JVD. CARDIOVASCULAR: Regular rate and rhythm. RESPIRATORY: No accessory muscle use. Clear to auscultation. Breath sounds equal bilaterally. GASTROINTESTINAL: Abdomen soft, non-tender, nondistended. Hepatic and splenic margins not palpable. MUSCULOSKELETAL: Range of motion somewhat limited secondary to pain at the right shoulder. 2+ radial artery pulse. Hand rn document improvement equal bilaterally. There is minimal nonpitting edema from the mid shaft forearm distally. NEUROLOGICAL: Awake and alert. No obvious cranial nerve deficits. Motor grossly within normal limits. Five out of 5 muscle strength in the arms and legs. Normal speech. PSYCHIATRIC: Appropriate mood and affect; insight and judgment normal. Data Data Last Documented VS Vital Signs Date Time Temp Pulse Resp B/P (MAP) Pulse Ox O2 Delivery O2 Flow Rate FiO2 12/05/17 21:59 90 18 149/72 (97) 97 Room Air 12/05/17 19:03 98.9 Orders Orders Electrocardiogram (12/05/17 19:56) Basic Metabolic Panel (Bmp) (12/05/17 19:56) Complete Blood Count With Diff (12/05/17 19:56) Magnesium (Mg) (12/05/17 19:56) Prothrombin Time / Inr (Pt) (12/05/17 19:56) Act Partial Throm Time (Ptt) (12/05/17 19:56) Ecg Monitoring (12/05/17 19:56) Iv Access Insert/Monitor (12/05/17 19:56) Oximetry (12/05/17 19:56) Oxygen Administration (12/05/17 19:56) Sodium Chloride 0.9% Flush (Ns Flush) (12/05/17 20:00) Ct Pulmonary Angiogram (12/05/17 19:56) Hydromorphone Pf Inj (Dilaudid Pf Inj) (12/05/17 20:00) Ondansetron Inj (Zofran Inj) (12/05/17 20:00) Us Arm Venous Doppler (12/05/17 ) Oxycodone-Acetamin 5-325 Mg (Percocet (12/05/17 21:45) MDM Medical Decision Making Medical Screen Exam Complete: Yes Emergency Medical Condition: Yes Medical Record Reviewed: Yes Differential Diagnosis DVT, adhesive capsulitis, septic arthritis, lymphedema, PE Narrative Course EKG shows a left bundle branch block pattern with a rate of 81 Left antecubital IV access obtained however it subsequently infiltrated. Right upper extremity ultrasound shows no blood clot. Case discussed with Dr. Morley 11 PM with plan to follow-up CT pulmonary angiogram blood work and disposition patient pending results. Gato Mark MD Dec 05, 2017 20:50
[2017-12-05] MEDS ORDERED: oxyCODONE/ACETAMINOPHEN 5 MG/325 MG TAB PO ONE (21:45)
[2017-12-05 21:59] VITALS: BP 149/72; PULSE 90; RESP 18; O2SAT 97
--- NOTE | 2017-12-05 22:35 | RADRPT ---
EXAM DATE/TIME: 12/05/2017 21:51 [facility] COMPARISON: No previous studies available for comparison. INDICATIONS : Right arm pain. MEDICAL HISTORY : TIA. SURGICAL HISTORY : None. ENCOUNTER: Initial ACUITY: 4 - 6 days PAIN SCORE: 5/10 LOCATION: Right arm. FINDINGS: There is spontaneous flow documented in the brachial, basilic, cephalic, axillary, and subclavian vei ns. The vessels are compressible and augmentation response is documented. No filling defects are se en. The flow is phasic with respiration. Direction of flow in the jugular vein is caudal. CONCLUSION: Normal examination. Clifton Palmer MD on December 05, 2017 at 22:33 Board Certified Radiologist. This report was verified electronically.
[2017-12-05 23:20] VITALS: BP 145/74; PULSE 90; RESP 18; O2SAT 99
[2017-12-06 00:16] LABS: BASOPHIL # 0.2 TH/MM3 (0-0.2); BASOPHIL % 2.1 % (0.0-2.0); EOSINOPHIL # 0.1 TH/MM3 (0-0.4); EOSINOPHIL % 1.1 % (0.0-4.0); HEMATOCRIT 39.5 % (39.0-51.0); HEMOGLOBIN 13.6 GM/DL (13.0-17.0); LYMPH % 17.3 % (9.0-44.0); LYMPHOCYTE # 1.5 TH/MM3 (1.0-4.8); MEAN CELL VOLUME 99.4 FL (80.0-100.0); MEAN CORPUSCULAR HEMOGLOBIN 34.3 PG (27.0-34.0); MEAN CORPUSCULAR HGB CONC 34.6 % (32.0-36.0); MEAN PLATELET VOLUME 8.3 FL (7.0-11.0); MONO % 9.1 % (0.0-8.0); MONOCYTE # 0.8 TH/MM3 (0-0.9); NEUT % 70.4 % (16.0-70.0); PLATELET COUNT 147 TH/MM3 (150-450); RED BLOOD COUNT 3.97 MIL/MM3 (4.50-5.90); RED CELL DISTRIBUTION WIDTH 13.7 % (11.6-17.2); WHITE BLOOD COUNT 8.6 TH/MM3 (4.0-11.0)
[2017-12-06 00:25] LABS: CALCIUM 8.5 MG/DL (8.5-10.1)
[2017-12-06 00:26] LABS: BICARBONATE 28.4 MEQ/L (21.0-32.0); MAGNESIUM 1.9 MG/DL (1.5-2.5)
[2017-12-06 00:29] LABS: CREATININE 0.77 MG/DL (0.60-1.30)
[2017-12-06 00:37] LABS: INTERNATIONAL NORMALIZED RATIO 3.5 RATIO; PROTHROMBIN TIME - PATIENT 35.2 SEC (9.8-11.6)
[2017-12-06 01:05] VITALS: BP 113/48; PULSE 87; RESP 18; O2SAT 97
--- NOTE | 2017-12-06 01:10 | RADRPT ---
EXAM DATE/TIME: 12/06/2017 00:16 [facility] COMPARISON: CHEST PA & LAT, April 23, 2015, 7:23. INDICATIONS : Shortness of breath MEDICAL HISTORY : TIA SURGICAL HISTORY : None. ENCOUNTER: Initial ACUITY: 1 day PAIN SCORE: 0/10 LOCATION: Bilateral chest FINDINGS: PA and lateral views of the chest. Mild elevation right hemidiaphragm. The lungs are clear. Cardiomed iastinal silhouette within normal limits. No evidence of pleural effusion or pneumothorax. CONCLUSION: No acute cardiopulmonary disease identified. Davon Woodruff MD on December 06, 2017 at 1:07 Board Certified Radiologist. This report was verified electronically.
--- NOTE | 2017-12-06 02:33 | RADRPT ---
EXAM DATE/TIME: 12/06/2017 01:15 [facility] COMPARISON: CHEST PA & LAT, December 06, 2017, 0:16. INDICATIONS : Right arm pain. DOSE: 0.97 mCi Tc99m DTPA 8.4 mCi Tc99m MAA MEDICAL HISTORY : Hypertension. Diabetes mellitus type 2. TIA SURGICAL HISTORY : Tonsillectomy. ENCOUNTER: Initial ACUITY: 1 day PAIN SCALE: 7/10 LOCATION: Right arm. TECHNIQUE: Following five minutes of tidal breathing of DTPA aerosol, planar images of the lungs were performed in eight projections. The patient was then injected with MAA, and eight-view perfusion scan was perf ormed. FINDINGS: There is a homogeneous pattern of aerosol delivery to the periphery of both lungs. No focal ventilat ory defects are seen. The perfusion lung scan demonstrates a homogenous pattern of uptake in both lungs. No segmental or s ubsegmental defects are seen. CONCLUSION: No evidence of pulmonary embolus. Davon Woodruff MD on December 06, 2017 at 2:29 Board Certified Radiologist. This report was verified electronically.
[2017-12-06] MEDS ORDERED: TRAM50TA PO (03:22)
--- NOTE | 2017-12-06 03:28 | PD ---
Physical Exam Time Seen by Provider: 03:[address] Mark left me with this patient to rule out pulmonary embolus. If no pulmonary embolus he stated the patient can be discharged. Data Data Last Documented VS Vital Signs Date Time Temp Pulse Resp B/P (MAP) Pulse Ox O2 Delivery O2 Flow Rate FiO2 12/06/17 01:05 87 18 113/48 (69) 97 Room Air 12/05/17 19:03 98.9 Orders Orders Electrocardiogram (12/05/17 19:56) Basic Metabolic Panel (Bmp) (12/05/17 19:56) Complete Blood Count With Diff (12/05/17 19:56) Magnesium (Mg) (12/05/17 19:56) Prothrombin Time / Inr (Pt) (12/05/17 19:56) Act Partial Throm Time (Ptt) (12/05/17 19:56) Ecg Monitoring (12/05/17 19:56) Iv Access Insert/Monitor (12/05/17 19:56) Oximetry (12/05/17 19:56) Oxygen Administration (12/05/17 19:56) Sodium Chloride 0.9% Flush (Ns Flush) (12/05/17 20:00) Hydromorphone Pf Inj (Dilaudid Pf Inj) (12/05/17 20:00) Ondansetron Inj (Zofran Inj) (12/05/17 20:00) Us Arm Venous Doppler (12/05/17 ) Oxycodone-Acetamin 5-325 Mg (Percocet (12/05/17 21:45) Ventilation & Perfusion Scan (12/05/17 ) Chest, Pa & Lat (12/05/17 23:42) Ed Discharge Order (12/06/17 03:23) Labs Laboratory Tests Test 12/06/17 00:00 White Blood Count 8.6 TH/MM3 Red Blood Count 3.97 MIL/MM3 Hemoglobin 13.6 GM/DL Hematocrit 39.5 % Mean Corpuscular Volume 99.4 FL Mean Corpuscular Hemoglobin 34.3 PG Mean Corpuscular Hemoglobin Concent 34.6 % Red Cell Distribution Width 13.7 % Platelet Count 147 TH/MM3 Mean Platelet Volume 8.3 FL Neutrophils (%) (Auto) 70.4 % Lymphocytes (%) (Auto) 17.3 % Monocytes (%) (Auto) 9.1 % Eosinophils (%) (Auto) 1.1 % Basophils (%) (Auto) 2.1 % Neutrophils # (Auto) 6.0 TH/MM3 Lymphocytes # (Auto) 1.5 TH/MM3 Monocytes # (Auto) 0.8 TH/MM3 Eosinophils # (Auto) 0.1 TH/MM3 Basophils # (Auto) 0.2 TH/MM3 CBC Comment DIFF FINAL Differential Comment Prothrombin Time 35.2 SEC Prothromb Time International Ratio 3.5 RATIO Activated Partial Thromboplast Time 47.2 SEC Blood Urea Nitrogen 12 MG/DL Creatinine 0.77 MG/DL Random Glucose 103 MG/DL Calcium Level 8.5 MG/DL Magnesium Level 1.9 MG/DL Sodium Level 134 MEQ/L Potassium Level 3.9 MEQ/L Chloride Level 100 MEQ/L Carbon Dioxide Level 28.4 MEQ/L Anion Gap 6 MEQ/L Estimat Glomerular Filtration Rate 98 ML/MIN MDM Medical Record Reviewed: Yes Supervised Visit with LISA: No Interpretation(s) The ultrasound was negative for DVT in the right arm. The CTA could not be performed because the nurses could not start an IV. The patient was low probability for pulmonary embolus and a VQ scan was done which was negative. 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 There is no erythema or skin rash on the arm. He needs to follow-up with his primary care physician. He is given tramadol for the pain. Diagnosis Primary Impression: Right arm pain Additional Instruction: Follow-up with your primary care physician. He can work up arthritis much more thoroughly than we are able to do here in the emergency department. Do not drink alcohol or drive on the tramadol. Med/Other Pt SpecificInfo: Prescription(s) given Scripts Tramadol (Tramadol) 50 Mg Tab 50 MG PO Q4H Y for PAIN, #20 TAB 0 Refills Prov: Alonzo Morley MD 12/06/17 Disposition: 01 DISCHARGE HOME Condition: Stable Alonzo Morley MD Dec 06, 2017 03:28
[2017-12-06 03:38] VITALS: BP 133/64; TEMP 98.5
--- NOTE | 2017-12-06 05:34 | EKG ---
Date Performed: 12/05/2017 Time Performed: 20:18:05 PTAGE: 77 years EKG: Sinus rhythm WITH FIRST DEGREE AV BLOCK LEFT AXIS DEVIATION POOR R WAVE PROGRESSION NONSPECIFIC INTRAVENTRICULAR CONDUCTION DELAY SEPTAL MYOCARDIAL INFARCTION ABNORMAL ECG PREVIOUS TRACING : 12/04/2017 18.56 No significant change from previous tracing noted. DOCTOR: Shoaib Vines Interpretating Date/Time 12/06/2017 05:32:09
== END 2017-12-06 03:51 | disposition home or self-care (01) ==
LOC: PHED 18:50
DX: M79.601 Pain in right arm (principal); R55 Syncope and collapse; M19.90 Unspecified osteoarthritis, unspecified site; I48.91 Unspecified atrial fibrillation; E11.9 Type 2 diabetes mellitus without complications; I10 Essential (primary) hypertension; R94.31 Abnormal electrocardiogram [ECG] [EKG]; Z79.01 Long term (current) use of anticoagulants
CPT/HCPCS: 71046; 78582; 80048; 83735; 85025; 85610; 85730; 93005; 93971; 96374; 96375; 99285; A9540; A9567; J1170; J2405